=== PATIENT | female | born 1945 | race Caucasian/White ===

== ENCOUNTER 2018-03-09 08:08 | Day surgery (SDC) | payer OTHER ==
[2018-03-09] MEDS ORDERED: Ringers Lactate 1,000 ML IV ONE (08:21)
[2018-03-09] MEDS ORDERED: PROPOFOL 200 MG/20 ML VIAL IV ONE ×2 (10:58)
[2018-03-09] MEDS ORDERED: LIDOCAINE 1% MPF 5 ML VIAL ONE (10:58)
--- NOTE | 2018-03-09 11:02 | ENDO RPT ---
[address], [address] COLONOSCOPY PROCEDURE REPORT EXAM DATE: 03/09/2018 PATIENT NAME: Margaret Shaffer MR #: [id number] BIRTHDATE: 1945 ATTENDING: Adam Padilla DR STATUS: outpatient MACHINE UMBRELLA TIPPER: Sherry Palacios RN, Jennifer Monzon, Robret Monzon, and Gayla Mariano RN INDICATIONS: The patient is a 73 yr old Female here for a colonoscopy due to colon cancer screening and rectal bleeding PROCEDURE PERFORMED: Screening Colonoscopy MEDICATIONS: Per Anesthesia. ESTIMATED BLOOD LOSS: None CONSENT: The patient understands the risks and benefits of the procedure and understands that these risks include, but are not limited to: sedation, allergic reaction, infection, perforation and/or bleeding. Alternative means of evaluation and treatment include, among others: physical exam, x-rays, and/or surgical intervention. The patient elects to proceed with this endoscopic procedure. DESCRIPTION OF PROCEDURE: During intra-op preparation period all mechanical medical equipment was checked for proper function. Hand hygiene and appropriate measures for infection prevention was taken. Procedure, possible complications, alternatives including, but not limited to possibility of bleeding, perforation, tear, infection, sepsis, need for surgery, need for blood transfusion, were explained to the patient. After the risks, benefits and alternatives of the procedure were thoroughly explained, Informed consent was verified, confirmed and timeout was successfully executed by the treatment team. The patient was placed in the left lateral position. A digital rectal exam was performed and revealed internal hemorrhoids. After appropriate level of anesthesia, the scope was passed. The EC-[id number] ([id number]) endoscope was introduced through the anus and advanced to the ascending colon. The quality of the prep was inadequate. The instrument was then slowly withdrawn as the colon was fully examined. Scope withdrawal time was 5 minutes. COLON FINDINGS: Unable to complete due to large stool burden. Retroflexed views revealed no abnormalities. The scope was then completely withdrawn from the patient and the procedure terminated. ADVERSE EVENTS: There were no complications. IMPRESSIONS: Unable to complete due to large stool burden RECOMMENDATIONS: follow-up: office 1 week(s) RECALL: for Colonoscopy. if able to complete prep Adam Padilla DR eSigned: Adam Padilla DR 03/09/2018 11:02 AM cc: CPT CODES: ICD9 CODES: PATIENT NAME: Margaret Shaffer MR#: [id number]
[2018-03-09 11:38] VITALS: BP 106/49; TEMP 97.6; O2SAT 100
== END 2018-03-09 12:06 | disposition home or self-care (01) ==
LOC: OR 08:08
PROVIDERS: ATTEND Surgery
PROC: 0DJD8ZZ Inspection of Lower Intestinal Tract, Via Natural or Artificial Opening Endoscopic (ICD-10-PCS; principal; 2018-03-09 08:30)
DX: K62.5 Hemorrhage of anus and rectum (principal); K64.8 Other hemorrhoids; I10 Essential (primary) hypertension; I25.10 Atherosclerotic heart disease of native coronary artery without angina pectoris; E78.00 Pure hypercholesterolemia, unspecified; D68.9 Coagulation defect, unspecified; E03.9 Hypothyroidism, unspecified; N32.81 Overactive bladder; Z88.2 Allergy status to sulfonamides; Z80.9 Family history of malignant neoplasm, unspecified; Z82.49 Family history of ischemic heart disease and other diseases of the circulatory system
CPT/HCPCS: 45378; J2704 ×2

== ENCOUNTER 2018-05-06 10:41 | Emergency (ER) | payer OTHER ==
--- NOTE | 2018-05-06 12:14 | RAD REPORT ---
EXAM DESCRIPTION: RAD - Wrist Right 3 View - 05/06/2018 11:42 am CLINICAL HISTORY: Fall, hand and wrist pain COMPARISON: None. FINDINGS: No fracture is identified. There is no dislocation or periosteal reaction noted. Slight na rrowing of the radiocarpal joint space seen. Nyvn-pa-zgjnsvic degenerative changes are present at the trapezium first metacarpal articulation with minimal degenerative change at the scaphoid trapezial a rticulation. No foreign body or other soft tissue abnormality. IMPRESSION: Right wrist degenerative change as detailed. No fracture or acute finding.
--- NOTE | 2018-05-06 12:17 | RAD REPORT ---
EXAM DESCRIPTION: RAD - Hand Right 3 View - 05/06/2018 11:42 am CLINICAL HISTORY: Trip and fall, hand pain COMPARISON: None. FINDINGS: No fracture is identified. There is no dislocation or periosteal reaction noted. Patient has advanced degenerative change involving the IP joints. This is most pronounced at the second DIP j oint. Joint space narrowing, sclerosis and spurring changes are present. No erosion. Patient has join t space narrowing at the first, fourth and fifth MCP joints. No spurring or erosive component. Modera te severity degenerative change at the trapezium first metacarpal articulation noted with slight subl uxation of the metacarpal. IMPRESSION: Prominent degenerative changes of the right hand with no fracture or acute bone finding.
--- NOTE | 2018-05-06 12:18 | ER ---
Nurse's Notes [facility] Name: Margaret Shaffer Age: 73 yrs Sex: Female : 1945 Arrival Date: 05/06/2018 Time: 10:43 Bed 11 Private MD: Allen Alcazar Diagnosis: Pain in right hand;Pain in right wrist Presentation: 05/06 10:58 Presenting complaint: Patient states: My knees hurt chronically from having arthritis sg and pain, reports feeling the pain and needing to sit down but was unable to get to the chair, pt states fell to the ground catching herself with her right hand, complains of pain in the right hand and right wrist at this time, denies trauma or injury to head or neck at this time. Transition of care: patient was not received from another setting of care. Onset of symptoms was May 06, 2018. Risk Assessment: Do you want to hurt yourself or someone else? Patient reports no desire to harm self or others. Initial Sepsis Screen: Does the patient meet any 2 criteria? No. Patient's initial sepsis screen is negative. Does the patient have a suspected source of infection? No. Patient's initial sepsis screen is negative. Care prior to arrival: None. 10:58 Method Of Arrival: Ambulatory sg 10:58 Acuity: PHOEBE 4 sg Triage Assessment: 12:00 General: Appears in no apparent distress. Behavior is calm. iw Historical: - Allergies: 11:00 Sulfa (Sulfonamide Antibiotics); sg - PMHx: 11:00 Dementia; Hypertension; sg - PSHx: 11:00 esophagus repair; sg - Immunization history:: Adult Immunizations up to date. - Social history:: Smoking status: Patient/guardian denies using tobacco. - Ebola Screening: : Patient negative for fever greater than or equal to 101.5 degrees Fahrenheit, and additional compatible Ebola Virus Disease symptoms Patient denies exposure to infectious person Patient denies travel to an Ebola-affected area in the 21 days before illness onset No symptoms or risks identified at this time. Screenin:58 Abuse screen: Denies threats or abuse. Denies injuries from another. Tuberculosis sg screening: No symptoms or risk factors identified. Never had TB. 11:50 Nutritional screening: No deficits noted. Fall Risk Fall in past 12 months (25 points). iw Assessment: 11:50 General: Appears in no apparent distress. Behavior is calm, cooperative. Pain: iw Complains of pain in right wrist. Neuro: Level of Consciousness is awake, alert, obeys commands, Oriented to person, place, time, situation, Moves all extremities. Cardiovascular: Patient's skin is warm and dry. Respiratory: Respiratory effort is even, unlabored. Derm: Skin is intact. Musculoskeletal: Range of motion: intact in all extremities. Musculoskeletal: Reports pain in right wrist. Vital Signs: 10:57 Pulse 98; Resp 17 S; Temp 98.3; Pulse Ox 96% on R/A; Pain 6/10; sg 11:00 BP 148 / 98; sg Cynthia Coma Score: 10:57 Eye Response: spontaneous(4). Verbal Response: oriented(5). Motor Response: obeys sg commands(6). Total: 15. Trauma Score (Adult): 10:57 Eye Response: spontaneous(1); Verbal Response: oriented(1); Motor Response: obeys sg commands(2); Systolic BP: > 89 mm Hg(4); Respiratory Rate: 10 to 29 per min(4); Smithwick Score: 15; Trauma Score: 12 ED Course: 10:43 Patient arrived in ED. rg4 10:44 Allen Alcazar DO is Private Physician. rg4 10:47 Stephanie Scruggs FNP-C is [facility]. kb 10:47 Adolph Reyes MD is Attending Physician. kb 11:00 Triage completed. sg 11:00 Arm band placed on. sg 11:41 X-ray completed. Portable x-ray completed in exam room. Patient tolerated procedure ml well. 11:42 XRAY Wrist RIGHT 3 view In Process Unspecified. EDMS 11:42 XRAY Hand RIGHT 3 View In Process Unspecified. EDMS 11:50 Patient has correct armband on for positive identification. iw 12:25 Shruthi Martell, RN is Primary Nurse. iw 12:34 No provider procedures requiring assistance completed. Patient did not have IV access iw during this emergency room visit. Administered Medications: No medications were administered Intake: 10:57 PO: 0ml; Total: 0ml. sg Outcome: 12:18 Discharge ordered by . kb 12:34 Discharged to home ambulatory, with family. iw 12:34 Condition: good 12:34 Discharge instructions given to patient, family, Instructed on discharge instructions, iw follow up and referral plans. Demonstrated understanding of instructions, follow-up care. 12:35 Patient left the ED. iw Signatures: Dispatcher [employer] Stephanie Abdul, DANISHA HENDERSON-Zachary Quiñones RN RN Shruthi Mccarthy RN RN osmany Solitario, Astrid Rivero, Mery rg4 Corrections: (The following items were deleted from the chart) 11:01 10:58 Presenting complaint: Patient states: My knees hurt chronically from having sg arthritis and pain, reports feeling the pain and needing to sit down but was unable to get to the chair, pt states fell to the ground catching herself with her left hand, complains of pain in the left hand and left wrist at this time, denies trauma or injury to head or neck at this time sg
--- NOTE | 2018-05-06 12:18 | EDPHYS ---
Physician Documentation [facility] Name: Margaret Shaffer Age: 73 yrs Sex: Female : 1945 Arrival Date: 05/06/2018 Time: 10:43 Bed 11 Private MD: Allen Alcazar ED Physician Adolph Reyes HPI: 05/06 11:52 This 73 yrs old Female presents to ER via Ambulatory with complaints of Fall kb Injury, Hand Injury. 11:52 Details of fall: The patient fell from an upright position, while walking. Onset: The kb symptoms/episode began/occurred this morning. Associated injuries: The patient sustained right hand and right wrist, painful injury, swelling. Severity of symptoms: At their worst the symptoms were mild, in the emergency department the symptoms are unchanged. The patient has not experienced similar symptoms in the past. The patient has not recently seen a physician. Historical: - Allergies: 11:00 Sulfa (Sulfonamide Antibiotics); sg - PMHx: 11:00 Dementia; Hypertension; sg - PSHx: 11:00 esophagus repair; sg - Immunization history:: Adult Immunizations up to date. - Social history:: Smoking status: Patient/guardian denies using tobacco. - Ebola Screening: : Patient negative for fever greater than or equal to 101.5 degrees Fahrenheit, and additional compatible Ebola Virus Disease symptoms Patient denies exposure to infectious person Patient denies travel to an Ebola-affected area in the 21 days before illness onset No symptoms or risks identified at this time. ROS: 11:51 Constitutional: Negative for fever, chills, and weight loss, Cardiovascular: Negative kb for chest pain, palpitations, and edema, Respiratory: Negative for shortness of breath, cough, wheezing, and pleuritic chest pain, Abdomen/GI: Negative for abdominal pain, nausea, vomiting, diarrhea, and constipation, Skin: Negative for injury, rash, and discoloration, Neuro: Negative for headache, weakness, numbness, tingling, and seizure. 11:51 MS/extremity: Positive for injury or acute deformity, pain, swelling, tenderness, of the right wrist and right hand. Exam: 11:51 Constitutional: This is a well developed, well nourished patient who is awake, alert, kb and in no acute distress. Head/Face: Normocephalic, atraumatic. Chest/axilla: Normal chest wall appearance and motion. Nontender with no deformity. No lesions are appreciated. Cardiovascular: Regular rate and rhythm with a normal S1 and S2. No gallops, murmurs, or rubs. Normal PMI, no JVD. No pulse deficits. Respiratory: Lungs have equal breath sounds bilaterally, clear to auscultation and percussion. No rales, rhonchi or wheezes noted. No increased work of breathing, no retractions or nasal flaring. Abdomen/GI: Soft, non-tender, with normal bowel sounds. No distension or tympany. No guarding or rebound. No evidence of tenderness throughout. Skin: Warm, dry with normal turgor. Normal color with no rashes, no lesions, and no evidence of cellulitis. Neuro: Awake and alert, GCS 15, oriented to person, place, time, and situation. Cranial nerves II-XII grossly intact. Motor strength 5/5 in all extremities. Sensory grossly intact. Cerebellar exam normal. Normal gait. 11:51 Musculoskeletal/extremity: Extremities: grossly normal except: noted in the right hand and right wrist: pain, swelling, tenderness, ROM: limited active range of motion due to pain, in the right hand and right wrist, Circulation is intact in all extremities. Sensation intact. Vital Signs: 10:57 Pulse 98; Resp 17 S; Temp 98.3; Pulse Ox 96% on R/A; Pain 6/10; sg 11:00 BP 148 / 98; sg Cynthia Coma Score: 10:57 Eye Response: spontaneous(4). Verbal Response: oriented(5). Motor Response: obeys sg commands(6). Total: 15. Trauma Score (Adult): 10:57 Eye Response: spontaneous(1); Verbal Response: oriented(1); Motor Response: obeys sg commands(2); Systolic BP: > 89 mm Hg(4); Respiratory Rate: 10 to 29 per min(4); Cynthia Score: 15; Trauma Score: 12 MDM: 11:21 Patient medically screened. kb 11:52 Data reviewed: vital signs, nurses notes. Data interpreted: Pulse oximetry: on room air kb is 96 %. Interpretation: normal. 12:17 Counseling: I had a detailed discussion with the patient and/or guardian regarding: the kb historical points, exam findings, and any diagnostic results supporting the discharge/admit diagnosis, radiology results, the need for outpatient follow up, a family practitioner, to return to the emergency department if symptoms worsen or persist or if there are any questions or concerns that arise at home. 05/06 11:03 Order name: XRAY Wrist RIGHT 3 view; Complete Time: 12:16 05/06 11:03 Order name: XRAY Hand RIGHT 3 View; Complete Time: 12:18 05/06 12:21 Order name: Dave Wrap; Complete Time: 12:35 kb Administered Medications: No medications were administered Disposition: 15:15 Co-signature as Attending Physician, Adolph Reyes MD. rn Disposition: 05/06/18 12:18 Discharged to Home. Impression: Pain in right hand, Pain in right wrist. - Condition is Stable. - Discharge Instructions: Musculoskeletal Pain, Wrist Pain, [id number]. - Medication Reconciliation Form, Thank You Letter, Antibiotic Education, Prescription Opioid Use form. - Follow up: Emergency Department; When: As needed; Reason: Worsening of condition. Follow up: Private Physician; When: 2 - 3 days; Reason: Recheck today's complaints, Continuance of care, Re-evaluation by your physician. Signatures: Dispatcher [employer] EDStephanie Mcghee, S[employer] CEMENT TESTER ASSISTANT-Ckb Zachary Mesa RN RN Shruthi Martell RN RN iw Nieto, Roman, MD MD undergraduate internship: (The following items were deleted from the chart) 12:35 12:18 05/06/2018 12:18 Discharged to Home. Impression: Pain in right hand; Pain in iw right wrist. Condition is Stable. Forms are Medication Reconciliation Form, Thank You Letter, Antibiotic Education, Prescription Opioid Use. Follow up: Emergency Department; When: As needed; Reason: Worsening of condition. Follow up: Private Physician; When: 2 - 3 days; Reason: Recheck today's complaints, Continuance of care, Re-evaluation by your physician. kb
[2018-05-06 13:20] VITALS: TEMP 98.3; O2SAT 96
[2018-05-06 13:21] VITALS: BP 148/98
== END 2018-05-06 12:35 | disposition home or self-care (01) ==
LOC: ER 10:41
DX: M25.531 Pain in right wrist (principal); I10 Essential (primary) hypertension; F03.90 Unspecified dementia, unspecified severity, without behavioral disturbance, psychotic disturbance, mood disturbance, and anxiety; Z88.2 Allergy status to sulfonamides
CPT/HCPCS: 99283

== ENCOUNTER 2018-06-21 19:58 | Inpatient (IN) | payer OTHER ==
[2018-06-21] MEDS ORDERED: ACETAMINOPHEN 500 MG TAB ONE (20:41)
[2018-06-21] MEDS ORDERED: NA CHLORIDE 0.9% 2,000 ML ONE (21:02)
[2018-06-21] MEDS ORDERED: AZITHROMYCIN 500 MG INJ IVPB ONE (21:02)
[2018-06-21] MEDS ORDERED: NA CHLORIDE 0.9% 250 ML ONE (21:02)
[2018-06-21] MEDS ORDERED: CEFTRIAXONE/SWI 1gm 1 GM/10 ML SYR ONE (21:02)
[2018-06-21 21:15] LABS: Absolute Lymphocytes (CBC) 0.8 K/uL (0.7-4.9); Absolute Monocytes 0.4 K/uL (0.1-1.3); Absolute Neutrophil 4.8 K/uL (1.8-8.0); Basophils % 0.2 % (0-1.3); Hematocrit 27.3 % (36.0-45.0); MPV 8.4 fL (7.6-11.3); Monocytes % 5.9 % (3.3-12.3); RBC Red Blood Cell Count 3.17 M/uL (3.86-4.86)
[2018-06-21 21:16] LABS: Protime INR 1.21
--- NOTE | 2018-06-21 21:29 | ER ---
Nurse's Notes [facility] Name: Margaret Shaffer Age: 73 yrs Sex: Female : 1945 Arrival Date: 06/21/2018 Time: 20:10 Bed 8 Private MD: Allen Alcazar Diagnosis: Other sepsis;Fever, unspecified;Pneumonia Presentation: 06/21 20:16 Presenting complaint: EMS states: "Her sister noted her not feeling as well yesterday jd3 and when she kissed her katty this evening she felt the pt was hot to the touch. pt had a temp on our arrival.". Transition of care: patient was not received from another setting of care. Onset of symptoms was June 20, 2018. Risk Assessment: Do you want to hurt yourself or someone else? Patient reports no desire to harm self or others. Initial Sepsis Screen: Does the patient meet any 2 criteria? RR > 20 per min. Temp <36.0*C (96.8*F)) or > 38.3*C (100.9*F). HR > 90 bpm. Yes Does the patient have a suspected source of infection? Yes: Productive cough/pneumonia If YES to both, name of provider notified: Maxwell Romero MD. Care prior to arrival: Glucose check: 84 Oxygen administered. via nasal cannula. 20:16 Method Of Arrival: EMS: [facility] jd3 20:16 Acuity: PHOEBE 2 jd3 Historical: - Allergies: 20:22 Sulfa (Sulfonamide Antibiotics); jd3 - Home Meds: 20:22 Hydrocodone-Acetaminophen Oral [Active]; lisinopril Oral [Active]; Nitroglycerin Oral jd3 [Active]; - PMHx: 20:22 Dementia; Hypertension; Myocardial infarction; UTI; Alzheimers; jd3 - PSHx: 20:22 esophagus repair; Heart stents; jd3 - Immunization history:: Adult Immunizations up to date. - Social history:: Smoking status: Patient/guardian denies using tobacco. - Ebola Screening: : Patient negative for fever greater than or equal to 101.5 degrees Fahrenheit, and additional compatible Ebola Virus Disease symptoms. Screenin:15 Abuse screen: Denies threats or abuse. Denies injuries from another. Nutritional aa1 screening: No deficits noted. Tuberculosis screening: No symptoms or risk factors identified. Fall Risk Mental Status- Overestimates/Forgets Limitations (15 pts.). Assessment: 20:15 General: Appears in no apparent distress. comfortable, Behavior is calm, cooperative, aa1 appropriate for age. Pain: Denies pain. Neuro: Level of Consciousness is awake, alert, obeys commands, Oriented to person, place, time, Moves all extremities. Speech is normal, Facial symmetry appears normal. Cardiovascular: Denies chest pain, shortness of breath, Heart tones S1 S2 present Rhythm is regular. Respiratory: Airway is patent Respiratory effort is even, unlabored, Respiratory pattern is regular, symmetrical, Breath sounds are clear bilaterally. GI: Abdomen is non-distended, Bowel sounds present X 4 quads. Abd is soft and non tender X 4 quads. : No signs and/or symptoms were reported regarding the genitourinary system. EENT: No signs and/or symptoms were reported regarding the EENT system. Derm: Skin is intact, is healthy with good turgor, Skin is pink, warm \\T\\ dry. Musculoskeletal: Circulation, motion, and sensation intact. Capillary refill < 3 seconds, Range of motion: intact in all extremities. 20:23 Reassessment: Unsuccessful attempt at gaining IV access. Pt has poor peripheral access; aa1 charge nurse notified and will attempt u/s IV. 21:05 Reassessment: Patient appears in no apparent distress at this time. Patient and/or aa1 family updated on plan of care and expected duration. Pain level reassessed. Patient is alert, oriented x 3, equal unlabored respirations, skin warm/dry/pink. Labs sent at this time. 22:00 Reassessment: Patient appears in no apparent distress at this time. Patient and/or aa1 family updated on plan of care and expected duration. Pain level reassessed. Patient is alert, oriented x 3, equal unlabored respirations, skin warm/dry/pink. Pt awaiting bed assignment for admission. 23:18 Reassessment: Patient appears in no apparent distress at this time. Patient and/or aa1 family updated on plan of care and expected duration. Pain level reassessed. Patient is alert, oriented x 3, equal unlabored respirations, skin warm/dry/pink. Attempted to call report to 4th floor, was told nurse will call back shortly. 06/22 00:03 Reassessment: Patient appears in no apparent distress at this time. Patient and/or aa1 family updated on plan of care and expected duration. Pain level reassessed. Patient is alert, oriented x 3, equal unlabored respirations, skin warm/dry/pink. Report given to Ketty on 4th floor. Vital Signs: 06/21 20:19 BP 139 / 54; Pulse 146; Resp 25 S; Temp 103.1(O); Pulse Ox 100% on 3 lpm NC; Weight jd3 54.43 kg (R); Height 5 ft. 0 in. (152.40 cm) (R); Pain 0/10; 21:21 BP 91 / 68; Pulse 113; Resp 16; Temp 99.8(O); Pulse Ox 99% on 2 lpm NC; Pain 0/10; aa1 22:12 BP 112 / 68; Pulse 105; Resp 18; Pulse Ox 97% on 2 lpm NC; Pain 0/10; aa1 23:23 BP 111 / 58; Pulse 110; Resp 18; Temp 98.7; Pulse Ox 98% on 2 lpm NC; Pain 0/10; aa1 23:40 BP 112 / 70; Pulse 108; Resp 18; Pulse Ox 99% on 2 lpm NC; aa1 20:19 Body Mass Index 23.44 (54.43 kg, 152.40 cm) jd3 ED Course: 20:10 Patient arrived in ED. ds1 20:11 Allen Alcazar DO is Private Physician. ds1 20:12 Maxwell Romero MD is Attending Physician. ps1 20:15 Patient has correct armband on for positive identification. Placed in gown. Bed in low aa1 position. Call light in reach. Side rails up X2. plant production worker on. Pulse ox on. NIBP on. 20:19 Triage completed. jd3 20:19 Missed attempt(s): 22 gauge in right antecubital area. Bleeding controlled, band aid aa1 applied, catheter tip intact. 20:20 Arm band placed on. jd3 20:23 Eula Vernon, LORE is Primary Nurse. aa1 20:45 Initial lab(s) drawn, by me, sent to lab. First set of blood cultures drawn. Inserted fc 18 gauge 8 cm midline to right upper brachial vein on first attempt. Line with good blood return and flushes well. 20:55 Chest Single View XRAY In Process Unspecified. EDMS 21:02 Second set of blood cultures drawn by ED staff. aa1 21:28 Lissette Arshad MD is Hospitalizing Provider. ps1 21:29 EKG done, by ED staff, reviewed by Maxwell Romero MD. aa1 22:00 Urine collected: straight cath specimen, cloudy, sediment noted. Straight cath aa1 inserted, using sterile technique, 16 Fr. Specimen obtained. Returned cloudy urine. Patient tolerated well. 06/22 00:03 No provider procedures requiring assistance completed. Patient admitted, IV remains in aa1 place. Administered Medications: 06/21 21:03 Drug: NS 0.9% (30 ml/kg) 30 ml/kg Route: IV; Rate: bolus; Site: right upper arm; aa1 22:10 Follow up: IV Status: Completed infusion; IV Intake: 2000ml aa1 21:03 Drug: Rocephin 1 grams Route: IV; Rate: calculated rate; Site: right upper arm; aa1 21:08 Follow up: IV Status: Completed infusion aa1 21:08 Drug: AZITHromycin 500 mg Route: IVPB; Infused Over: 1 hrs; Site: right upper arm; aa1 22:08 Follow up: IV Status: Completed infusion; IV Intake: 250ml aa1 21:35 CANCELLED (Other Intervention Used): Rocephin - (cefTRIAXone) 1 grams IVPB once over 30 aa1 mins; (mix in 50 mL NS) Point of Care Testing: Blood Glucose: 21:03 Blood Glucose: 103 mg/dL; aa1 Ranges: Intake: 22:08 IV: 250ml; Total: 250ml. aa1 22:10 IV: 2000ml; Total: 2250ml. aa1 Outcome: 21:29 Decision to Hospitalize by Provider. ps1 06/22 00:03 Admitted to Med/surg accompanied by tech, via stretcher, room 412, with oxygen, with aa1 chart, Report called to Ketty Condition: stable Instructed on the need for admit, Demonstrated understanding of instructions. 00:21 Patient left the ED. aa1 Signatures: Dispatcher [employer] EDMS Eula Vernon RN RN aa1 Genesis Ferguson RN RN fc Sanford, Demi ds1 Houston Barnes RN RN jd3 Maxwell Romero MD MD ps1
--- NOTE | 2018-06-21 21:29 | EDPHYS ---
Physician Documentation [facility] Name: Margaret Shaffer Age: 73 yrs Sex: Female : 1945 Arrival Date: 06/21/2018 Time: 20:10 Bed 8 Private MD: [facility] ED Physician Maxwell Romero HPI: 06/21 20:15 This 73 yrs old Female presents to ER via Unassigned with complaints of Fever.ps1 20:15 Family member providing history as patient is demented. Patient has had a fever noticed ps1 today but has not acted at her baseline for last 48 hours. Patient has not been eating and has had a cough. She has been on home O2 at 4L daily. She has multiple comorbidities. She had a measured temp TMAX 105.4 at home. Presented altered, tachycardic, and febrile. . Historical: - Allergies: 20:22 Sulfa (Sulfonamide Antibiotics); jd3 - Home Meds: 20:22 Hydrocodone-Acetaminophen Oral [Active]; lisinopril Oral [Active]; Nitroglycerin Oral jd3 [Active]; - PMHx: 20:22 Dementia; Hypertension; Myocardial infarction; UTI; Alzheimers; jd3 - PSHx: 20:22 esophagus repair; Heart stents; jd3 - Immunization history:: Adult Immunizations up to date. - Social history:: Smoking status: Patient/guardian denies using tobacco. - Ebola Screening: : Patient negative for fever greater than or equal to 101.5 degrees Fahrenheit, and additional compatible Ebola Virus Disease symptoms. ROS: 20:15 Unable to obtain ROS due to altered mental status, baseline dementia. ps1 Exam: 20:15 Head/Face: Normocephalic, atraumatic. Eyes: Pupils equal round and reactive to light, ps1 extra-ocular motions intact. Lids and lashes normal. Conjunctiva and sclera are non-icteric and not injected. ENT: Nares patent. No nasal discharge, no septal abnormalities noted. Tympanic membranes are normal and external auditory canals are clear. Oropharynx with no redness, swelling, or masses, exudates, or evidence of obstruction, uvula midline. Mucous membranes moist. 20:15 Abdomen/GI: Soft, non-tender, with normal bowel sounds. No distension or tympany. No guarding or rebound. No evidence of tenderness throughout. Skin: Warm, dry with normal turgor. Normal color with no rashes, no lesions, and no evidence of cellulitis. MS/ Extremity: Pulses equal, no cyanosis. Neurovascular intact. Full, normal range of motion. 20:15 Constitutional: The patient appears alert, obviously ill. 20:15 Cardiovascular: Rate: tachycardic, Rhythm: regular, Pulses: no pulse deficits are appreciated. 20:15 Respiratory: the patient does not display signs of respiratory distress, Respirations: normal, Breath sounds: rhonchi, Respiratory rate: tachypnea 20:15 Neuro: Orientation: disoriented, demented baseline. Vital Signs: 20:19 BP 139 / 54; Pulse 146; Resp 25 S; Temp 103.1(O); Pulse Ox 100% on 3 lpm NC; Weight jd3 54.43 kg (R); Height 5 ft. 0 in. (152.40 cm) (R); Pain 0/10; 21:21 BP 91 / 68; Pulse 113; Resp 16; Temp 99.8(O); Pulse Ox 99% on 2 lpm NC; Pain 0/10; aa1 22:12 BP 112 / 68; Pulse 105; Resp 18; Pulse Ox 97% on 2 lpm NC; Pain 0/10; aa1 23:23 BP 111 / 58; Pulse 110; Resp 18; Temp 98.7; Pulse Ox 98% on 2 lpm NC; Pain 0/10; aa1 23:40 BP 112 / 70; Pulse 108; Resp 18; Pulse Ox 99% on 2 lpm NC; aa1 20:19 Body Mass Index 23.44 (54.43 kg, 152.40 cm) jd3 MDM: 20:14 Patient medically screened. ps1 21:29 Data reviewed: vital signs, nurses notes, and as a result, I will admit patient. ps1 06/21 20:14 Order name: Blood Culture Adult (2) ps1 06/21 20:14 Order name: CBC with Diff; Complete Time: 21:34 ps1 06/21 20:14 Order name: Lactate; Complete Time: 21:34 ps1 06/21 20:14 Order name: Lipase; Complete Time: 21:51 ps1 06/21 20:14 Order name: Procalcitonin; Complete Time: 21:56 ps1 06/21 20:14 Order name: Protime (+inr); Complete Time: 21:34 ps1 06/21 20:14 Order name: Troponin (emerg Dept Use Only); Complete Time: 21:51 ps1 06/21 20:14 Order name: Urine Microscopic Only [facility] 06/21 20:14 Order name: Chest Single View XRAY; Complete Time: 21:56 ps1 06/21 20:14 Order name: CMP; Complete Time: 21:51 ps1 06/21 21:16 Order name: Glucose, Ancillary Testing; Complete Time: 21:26 EDMS 06/21 21:35 Order name: Flu ps1 06/21 22:21 Order name: Urine Dipstick--Ancillary (enter results) ar5 06/21 22:30 Order name: Urine Culture 06/21 20:14 Order name: Accucheck; Complete Time: 21:38 ps1 06/21 20:14 Order name: Cardiac monitoring; Complete Time: 20:41 ps1 06/21 20:14 Order name: EKG - Nurse/Tech; Complete Time: 21:38 ps1 06/21 20:14 Order name: IV Saline Lock - Large Bore; Complete Time: 21:38 ps1 06/21 20:14 Order name: Labs collected and sent; Complete Time: 20:41 ps1 06/21 20:14 Order name: O2 Per Protocol; Complete Time: 20:41 ps1 06/21 20:14 Order name: O2 Sat Monitoring; Complete Time: 20:41 ps1 06/21 20:14 Order name: Urine Dipstick-Ancillary (obtain specimen); Complete Time: 22:11 ps1 06/21 20:14 Order name: Straight Cath - Urine; Complete Time: 22:08 ps1 EC:33 Rate is 112 beats/min. Rhythm is regular. QRS [place] is Normal. AL interval is normal. ps1 QRS interval is normal. QT interval is normal. No Q waves. T waves are Normal. No ST changes noted. Clinical impression: Sinus tachycardia. Interpreted by me. Administered Medications: 21:03 Drug: NS 0.9% (30 ml/kg) 30 ml/kg Route: IV; Rate: bolus; Site: right upper arm; aa1 22:10 Follow up: IV Status: Completed infusion; IV Intake: 2000ml aa1 21:03 Drug: Rocephin 1 grams Route: IV; Rate: calculated rate; Site: right upper arm; aa1 21:08 Follow up: IV Status: Completed infusion aa1 21:08 Drug: AZITHromycin 500 mg Route: IVPB; Infused Over: 1 hrs; Site: right upper arm; aa1 22:08 Follow up: IV Status: Completed infusion; IV Intake: 250ml aa1 21:35 CANCELLED (Other Intervention Used): Rocephin - (cefTRIAXone) 1 grams IVPB once over 30 aa1 mins; (mix in 50 mL NS) Point of Care Testing: Blood Glucose: 21:03 Blood Glucose: 103 mg/dL; aa1 Ranges: Critical Glucose Levels:Adult <50 mg/dl or >400 mg/dl <40 mg/dl or >180 mg/dl Disposition: :29 Chart complete. ps1 Disposition: 06/21/18 21:29 Hospitalization ordered by Lissette Arshad for Inpatient Admission. Preliminary diagnosis are Other sepsis, Fever, unspecified, Pneumonia. - Bed requested for Telemetry/MedSurg (Inpatient). - Status is Inpatient Admission. aa1 - Condition is Fair. - Problem is new. - Symptoms have improved. UTI on Admission? Yes Signatures: Dispatcher [employer] EDMD Eula Vernon RN RN aa1 Houston Barnes RN RN jMaxwell Vásquez MD MD ps1 Stephanie Lovett ar5 Corrections: (The following items were deleted from the chart) 21:35 20:14 Rocephin - (cefTRIAXone) 1 grams IVPB once over 30 mins; (mix in 50 mL NS) aa1 ordered. ps1 21:35 21:35 Rocephin - (cefTRIAXone) 1 grams IVPB once over 30 mins; (mix in 50 mL NS) aa1 ordered. aa1 21:57 21:29 Hospitalization Ordered by Lissette Arshad MD for Inpatient Admission. Preliminary ps1 diagnosis is Other sepsis; Fever, unspecified. Bed requested for Telemetry/MedSurg (Inpatient). Status is Inpatient Admission. Condition is Fair. Problem is new. Symptoms have improved. UTI on Admission? Yes. ps1 22:52 21:57 06/21/2018 21:29 Hospitalization Ordered by Lissette Arshad MD for Inpatient ar5 Admission. Preliminary diagnosis is Other sepsis; Fever, unspecified; Pneumonia. Bed requested for Telemetry/MedSurg (Inpatient). Status is Inpatient Admission. Condition is Fair. Problem is new. Symptoms have improved. UTI on Admission? Yes. ps1 06/22 00:21 06/21 22:52 06/21/2018 21:29 Hospitalization Ordered by Lissette Arshad MD for Inpatient aa1 Admission. Preliminary diagnosis is Other sepsis; Fever, unspecified; Pneumonia. Bed requested for Telemetry/MedSurg (Inpatient). Status is Inpatient Admission. Condition is Fair. Problem is new. Symptoms have improved. UTI on Admission? Yes. ar5
[2018-06-21 21:37] LABS: Albumin 3.3 g/dL (3.4-5.0); Bilirubin Total 0.5 mg/dL (0.2-1.0); Potassium 4.3 mmol/L (3.5-5.1); Protein, Total 7.5 g/dL (6.4-8.2); Troponin (Emerg Dept Use Only) 0.03 ng/mL (0.0-0.045)
--- NOTE | 2018-06-21 21:53 | RAD REPORT ---
EXAM DESCRIPTION: RAD - Chest Single View - 06/21/2018 8:55 pm CLINICAL HISTORY: COUGH Chest pain. COMPARISON: Chest Pa And Lat (2 Views) dated 03/15/2017; Chest Single View dated 07/17/2016; Chest Singl e View dated 06/17/2016; Chest Single View dated 06/18/2015 FINDINGS: Portable technique limits examination quality. Rounded airspace opacity is present in the left mid lung peripherally, most compatible with pneumonia . The lungs are otherwise clear of acute infiltrate. The heart is normal in size. No displaced fractu res.Atherosclerosis. IMPRESSION: Peripheral left mid lung pneumonia. Consider followup films until complete clearance.
[2018-06-21 22:31] LABS: Urine Culture Reflex Order NOT NEEDED
[2018-06-21 22:32] LABS: Urine Bacteria 20-50 /HPF (<20); Urine RBC <5 /HPF (NONE SEEN)
[2018-06-21 22:33] LABS: Urine Blood 2+ (NEG); Urine Glucose NEGATIVE (NEG); Urine Protein 2+ (NEG)
--- NOTE | 2018-06-21 22:54 | P.HP ---
Certification for Inpatient Patient admitted to: Inpatient With expected LOS: >2 Midnights Practitioner: I am a practitioner with admitting privileges, knowledge of patient current condition, hospital course, and medical plan of care. Services: Services provided to patient in accordance with Admission requirements found in Title 42 Section 412.3 of the Code of Federal Regulations Patient History Date of Service: 06/21/18 Reason for admission: sepsis History of Present Illness: Ms Shaffer is a 73 years old woman with history of CVA, HTN, CAD, dementia, who according to her sister, she was not doing well today. The patient was more lethargic, and was felt hot to touch. Due to her dementia, the patient is not very reliable, but she states that has been coughing later. At arrival the patient was febrile 103.1 F, tachycardic 143 bpm. Lab work remarkable for normal WBC count, normal lacate and procalcitonin. UA abnormal, consistent with UTI. CXR also abnormal, shows left midlung pneumonia. Allergies Sulfa (Sulfonamide Antibiotics) Allergy (Verified 07/17/16 23:49) Itching/Hives/Rash Home Medications: Aspirin [Aspirin EC 81 MG] 81 mg PO BID 06/19/15 Docusate [Colace Cap*] 100 mg PO BEDTIME 06/19/15 Gabapentin [Neurontin*] 300 mg PO DAILY 06/19/15 Levothyroxine [Synthroid*] 0.075 mg PO DAILY 06/19/15 Lisinopril [Zestril] 2.5 mg PO DAILY 06/19/15 Metoprolol Succinate [Toprol Xl*] 50 mg PO DAILY 06/19/15 Nitroglycerin 0.4 mg SL DIRECTED 06/19/15 Verapamil HCl [Verapamil ER] 120 mg PO DAILY 06/19/15 risperiDONE [Risperdal 0.25 MG TAB*] 0.25 mg PO BID 06/19/15 Hydrocodone 10/APAP 325 [[place] 10/325*] 1 tab PO DAILY #40 tab 06/20/15 Simvastatin [Zocor*] 10 mg PO DAILY 06/17/16 Solifenacin Succinate [Vesicare] 1 tab PO DAILY 06/17/16 Ciprofloxacin HCl [Cipro 500 MG Tablet] 500 mg PO BID #10 tab 07/19/16 - Past Medical/Surgical History Diabetic: No -: HTN -: ARTHRITIS -: DEMENTIA -: CAD -: CVA -: Carotid artery disease -: Hypothyroidism -: Falls -: ESOPHAUS REPAIR -: HYSTERCTOMY -: CARTOID STENT -: LEFT CATARACT SX - Family History Mother -: Heart disease, Hypertension Notes: [place], Father -: Cancer, Other (see notes) Notes: [place] - Social History Smoking Status: Former smoker Alcohol use: No CD- Drugs: No Caffeine use: Yes Place of Residence: Home Review of Systems 10-point ROS is otherwise unremarkable Physical Examination - Physical Exam General: Alert, In no apparent distress, Demented, Confused HEENT: Atraumatic, PERRLA, Mucous membr. moist/pink, EOMI, Sclerae nonicteric Neck: Supple, 2+ carotid pulse no bruit, No LAD, Without JVD or thyroid abnormality Respiratory: Normal air movement, Crackles/rales (left base crackles) Cardiovascular: Regular rate/rhythm, Normal S1 S2 Gastrointestinal: Normal bowel sounds, No tenderness Musculoskeletal: No tenderness Integumentary: No rashes Neurological: Normal speech, Normal strength at 5/5 x4 extr, Normal tone, Normal affect, Dementia Lymphatics: No axilla or inguinal lymphadenopathy - Studies Laboratory Data (last 24 hrs) 06/21/18 20:45: PT 14.2 H, INR 1.21 06/21/18 20:45: Sodium 133 L, Potassium 4.3, BUN 20 H, Creatinine 1.21, Glucose 93, Total Bilirubin 0.5, AST 30, ALT 21, Alkaline Phosphatase 57, Lipase 71 L 06/21/18 20:45: WBC 6.0, Hgb 9.3 L, Hct 27.3 L, Plt Count 167 Assessment and Plan - Problems (Diagnosis) (1) Pneumonia Onset Date: 06/19/15 Current Visit: No Status: Acute Qualifiers: Pneumonia type: due to unspecified organism Laterality: left Lung location: lower lobe of lung Qualified Code(s): J18.1 - Lobar pneumonia, unspecified organism (2) Sepsis Current Visit: No Status: Acute Qualifiers: Sepsis type: sepsis due to unspecified organism Qualified Code(s): A41.9 - Sepsis, unspecified organism (3) UTI (urinary tract infection) Onset Date: 06/19/15 Current Visit: No Status: Acute Qualifiers: Urinary tract infection type: acute cystitis Hematuria presence: without hematuria Qualified Code(s): N30.00 - Acute cystitis without hematuria (4) CAD (coronary artery disease) Onset Date: 06/18/16 Current Visit: No Status: Chronic Qualifiers: Coronary Disease-Associated Artery/Lesion type: resighini artery [place] vs. transplanted heart: resighini heart Associated angina: without angina Qualified Code(s): I25.10 - Atherosclerotic heart disease of resighini coronary artery without angina pectoris (5) Dementia Onset Date: 06/18/16 Current Visit: No Status: Chronic Qualifiers: Dementia type: Alzheimer's disease Alzheimer's disease onset: unspecified onset Dementia behavioral disturbance: without behavioral disturbance Qualified Code(s): G30.9 - Alzheimer's disease, unspecified; F02.80 - Dementia in other diseases classified elsewhere without behavioral disturbance (6) History of CVA (cerebrovascular accident) Current Visit: No Status: Chronic - Plan The patient will be admitted to the hospital due to sepsis secondary to pneumonia and UTI. Will cotinue treatment with IV Rocephin and Azithromycin. Blood and urine culture in process. Also IV fluids, and breathing treatment as needed. - Advance Directives Does patient have a Living Will: No Does patient have a Durable POA for Healthcare: No - Code Status/Comfort Care Code Status Assessed: Yes Code Status: Full Code
[2018-06-22 00:41] VITALS: BMI 23.4
[2018-06-22] MEDS ORDERED: IPRATROPIUM BROM 0.5MG/2.5ML NEB PRN (00:42)
[2018-06-22] MEDS ORDERED: ALBUTEROL 2.5 MG/3 ML NEB SOL NEB PRN (00:42)
[2018-06-22] MEDS ORDERED: ONDANSETRON 4 MG/2 ML VIAL IV PRN (00:42)
[2018-06-22] MEDS: NA CHLORIDE 0.9% 1,000 ML IV SCH ×2 (00:57→08:25)
[2018-06-22] MEDS: ACETAMINOPHEN 500 MG TAB PO PRN ×2 (01:26→13:55)
[2018-06-22 04:13] LABS: Absolute Lymphocytes (CBC) 1.8 K/uL (0.7-4.9); Absolute Monocytes 0.4 K/uL (0.1-1.3); Absolute Neutrophil 3.2 K/uL (1.8-8.0); Basophils % 0.3 % (0-1.3); Eosinophils % 0.2 % (0-4.4); Hematocrit 26.1 % (36.0-45.0); Lymphocytes % 33.4 % (15.3-44.8); MPV 8.4 fL (7.6-11.3); Monocytes % 6.8 % (3.3-12.3); RBC Red Blood Cell Count 3.02 M/uL (3.86-4.86)
[2018-06-22 04:32] LABS: Potassium 4.1 mmol/L (3.5-5.1)
[2018-06-22 06:07] LABS: Magnesium 2.1 mg/dL (1.8-2.4)
--- NOTE | 2018-06-22 10:53 | EKG ---
Test Date: 2018-06-21 Test Time: 21:28:[address] Man: HADLEY MEASUREMENT RESULTS: Intervals: Rate: 112 CO: 160 QRSD: 110 QT: 352 QTc: 480 [place]: P: 56 CO: 160 QRS: -25 T: 68 INTERPRETIVE STATEMENTS: Sinus tachycardia Low voltage QRS Cannot rule out Anteroseptal infarct, age undetermined Abnormal ECG Compared to ECG 07/17/2016 19:58:08 Low QRS voltage now present Sinus rhythm no longer present Prolonged QT interval no longer present Myocardial infarct finding still present Electronically Signed On 06-22-18 10:52:14 CDT by Killian Robert
--- NOTE | 2018-06-22 13:35 | P.PN ---
Subjective Date of Service: 06/22/18 Chief Complaint: sepsis Subjective: Improving Physical Examination - Vital Signs Temperature: 100.1 F Blood Pressure: 139/61 Pulse: 117 Respirations: 20 Pulse Ox (%): 98 - Physical Exam General: Alert, In no apparent distress, Oriented x3, Demented HEENT: Atraumatic Neck: Supple Respiratory: Clear to auscultation bilaterally, Normal air movement Cardiovascular: Normal pulses, Regular rate/rhythm Gastrointestinal: Normal bowel sounds, Soft and benign, Non-distended, No masses , No rebound, No guarding Neurological: Dementia - Studies Laboratory Data (last 24 hrs) 06/21/18 20:45: PT 14.2 H, INR 1.21 06/21/18 20:45: Sodium 133 L, Potassium 4.3, BUN 20 H, Creatinine 1.21, Glucose 93, Total Bilirubin 0.5, AST 30, ALT 21, Alkaline Phosphatase 57, Lipase 71 L 06/21/18 20:45: WBC 6.0, Hgb 9.3 L, Hct 27.3 L, Plt Count 167 Microbiology Data (last 24 hrs): 06/21/18 22:26 Nasopharnyx Influenza Type A Antigen Screen - Final 06/21/18 22:26 Nasopharnyx Influenza Type B Antigen Screen - Final Medications List Reviewed: Yes Assessment & Plan Discharge Plan: Home Plan to discharge in: 48 Hours Physician Review Additional Text: Impression: Left lobe lower lobe pneumonia along with UTI Hypertension CAD Hypothyroidism Dementia Chronic iron deficiency anemia Plan: Left lobe lower lobe pneumonia along with UTI: Continue antibiotic therapy. Recheck chest x-ray tomorrow. Maintain sats above 90%. Wean off oxygen. Await culture results. Likely discharge within the next 24-48 hr. Patient will return to home with hospice. Case discussed with her family. Agree with current plan of care. Hypertension: Obtain and restart home medication. CAD: Will obtain and restart home medication. Hypothyroidism: Will obtain and restart home medication. Dementia: Will need to verify and restart home medication. Patient return to hospice at discharge. Chronic iron deficiency/B12 anemia: Will start iron and B12. Time Spent Managing Pts Care (In Minutes): 55
[2018-06-22] MEDS: METOPROLOL XL 25 MG TAB PO SCH ×2 (13:55→21:18)
[2018-06-22] MEDS ORDERED: NA CHLORIDE 0.9% 1,000 ML IV SCH (14:00)
[2018-06-22] MEDS: HYDROCODONE/APAP 5/325 MG TAB PO PRN ×2 (16:18→21:24)
[2018-06-22] MEDS ORDERED: ENOXAPARIN 30 MG/0.3 ML SQ SCH (17:00)
[2018-06-22] MEDS ORDERED: CEFTRIAXONE 1 GM/NS 50 ML 1 GM/50 ML BAG IV SCH (21:00)
[2018-06-22] MEDS ORDERED: AZITHROMYCIN IV 500 MG in NA CHLORIDE 0.9% 250 ML IVPB SCH (21:00)
[2018-06-22] MEDS: FERROUS SULFATE 325 MG TAB PO SCH (21:18)
[2018-06-23 07:21] LABS: Absolute Lymphocytes (CBC) 1.1 K/uL (0.7-4.9); Absolute Monocytes 0.3 K/uL (0.1-1.3); Absolute Neutrophil 4.1 K/uL (1.8-8.0); Basophils % 0.2 % (0-1.3); Eosinophils % 0.3 % (0-4.4); Hematocrit 27.5 % (36.0-45.0); Lymphocytes % 19.9 % (15.3-44.8); MPV 8.2 fL (7.6-11.3); Monocytes % 5.5 % (3.3-12.3); RBC Red Blood Cell Count 3.23 M/uL (3.86-4.86)
[2018-06-23 07:35] LABS: Magnesium 1.8 mg/dL (1.8-2.4); Potassium 3.6 mmol/L (3.5-5.1)
[2018-06-23] MEDS ORDERED: MAGNESIUM SULFATE 1 gm IVPB 1 GM/100 ML BAG IV ONE (07:49)
[2018-06-23] MEDS ORDERED: POTASSIUM CL SA 10 MEQ TAB PO ONE (07:50)
--- NOTE | 2018-06-23 08:41 | RAD REPORT ---
EXAM DESCRIPTION: Rogelio Pa And Lat (2 Views)06/23/2018 6:42 am CLINICAL HISTORY: Cough COMPARISON: June 21 FINDINGS: Mild improvement in the left upper lobe infiltrate. Extensive bilateral pulmonary opacities are unchanged consistent with pulmonary fibrosis. The heart is normal size IMPRESSION: Mild improvement in the left upper lobe pneumonia
[2018-06-23] MEDS ORDERED: CYANOCOBALAMIN 1,000 MCG TAB PO SCH (09:00)
[2018-06-23] MEDS: ACETAMINOPHEN 500 MG TAB PO PRN (09:03)
[2018-06-23] MEDS: FERROUS SULFATE 325 MG TAB PO SCH (09:04)
[2018-06-23] MEDS: METOPROLOL XL 25 MG TAB PO SCH (09:04)
[2018-06-23 10:06] VITALS: O2SAT 95
--- NOTE | 2018-06-23 13:11 | P.DS ---
Admission Date: 06/21/18 Discharge Date: 06/23/18 Primary Care Provider: Dr. Allen Alcazar Disposition: HOSPICE-HOME Discharge Condition: GOOD Reason for Admission: sepsis Consultations: none Procedures: CXR: COMPARISON: June 21 FINDINGS: Mild improvement in the left upper lobe infiltrate. Extensive bilateral pulmonary opacities are unchanged consistent with pulmonary fibrosis. The heart is normal size IMPRESSION: Mild improvement in the left upper lobe pneumonia Medical Problem List: Left lobe lower lobe pneumonia along with UTI Hypertension CAD/Chronic Diastolic CHF Hypothyroidism Alzheimer's dementia Chronic iron and B12 deficiency anemia Urinary incontinence Chronic pain Brief History of Present Illness: 73-year-old female presented to the emergency room with increased fatigue, fever. Patient found to have left lower lobe pneumonia with UTI. Patient was admitted for treatment. Patient with history of CHF, CAD, hypertension, hypothyroidism, Alzheimer's dementia and currently on hospice. Hospital Course: Patient presented with fatigue and fever secondary to left lower lobe pneumonia with UTI. Patient responded well to IV fluids and antibiotic therapy. Chest x- ray showed improvement. Patient was able to be weaned off oxygen. At discharge urine culture was pending. Patient was doing well and wanted to go home. This was discussed in detail with family and patient. In consideration of the patient returning back to hospice and her desire to go home the patient was released. Patient will need a call back to the hospital tomorrow to follow up on urine culture. Prior urine culture reviewed. At discharge patient will return home with hospice. At discharge she will continue with Augmentin 500 mg 1 pill twice daily for 7 days. UTI prevention education will be provided. Patient will be given information on pneumonia. Recommend to recheck chest x- ray in 2-4 weeks to monitor resolution. Patient with history of CHF and hypertension. Occasions were adjusted during his stay patient did well with metoprolol XL 50 mg daily. At discharge she will continue with aspirin 81 mg daily, lisinopril 2.5 mg daily, and metoprolol XL 50 mg daily. Please note at discharge verapamil was discontinued as blood pressure was well controlled. Recommend to monitor blood pressures daily. Further adjustment in medication can be done by her PCP. Patient with hyperlipidemia. Patient will continue with her medication Zocor 10 mg daily. Patient with history of urinary incontinence. Patient taking Ditropan and VESIcare. Will discontinue Ditropan at discharge. Patient may continue with VESIcare 10 mg daily. Recommend to follow up with urology as an outpatient to further address. UTI prevention as recommended above. Continue with above recommendation addressing UTI. Patient with Alzheimer's dementia. Patient will continue with her medication Namenda ER once daily. Patient also takes risperidone 0.25 mg 1 pill twice daily and trazodone 100 mg at bedtime as needed. Patient will continue with hospice at home. Patient with iron and B12 deficiency. Previous lab reviewed. At discharge, patient may continue with vitamin-B 12 daily and iron 325 mg 1 pill twice daily. Recommend to recheck CBC in 1-2 months. Patient with hypothyroidism. At discharge she will continue with levothyroxine 75 mcg daily. Patient with chronic pain. Patient may continue with Neurontin 100 mg 1 pill twice daily and Belton 1 pill 3 times a day as needed for pain. Vital Signs/Physical Exam: Temp Pulse Resp BP Pulse Ox 97.4 F 89 20 128/56 L 96 06/23/18 08:00 06/23/18 09:04 06/23/18 08:00 06/23/18 09:04 06/23/18 08:00 General: Alert, In no apparent distress, Cooperative, Demented (Minimal) HEENT: Atraumatic Neck: Supple Respiratory: Clear to auscultation bilaterally, Normal air movement Cardiovascular: Normal pulses, Regular rate/rhythm Gastrointestinal: Normal bowel sounds, Soft and benign, Non-distended Integumentary: No tenderness/swelling, No erythema, No warmth, No cyanosis Neurological: Normal speech, Normal strength at 5/5 x4 extr, Normal tone Laboratory Data at Discharge: WBC 5.5 K/uL (4.3-10.9) 06/23/18 07:00 Hgb 9.5 g/dL (12.0-15.0) L 06/23/18 07:00 Hct 27.5 % (36.0-45.0) L 06/23/18 07:00 Plt Count 156 K/uL (152-406) 06/23/18 07:00 PT 14.2 SECONDS (9.5-12.5) H 06/21/18 20:45 INR 1.21 06/21/18 20:45 Sodium 140 mmol/L (136-145) 06/23/18 07:00 Potassium 3.6 mmol/L (3.5-5.1) 06/23/18 07:00 BUN 9 mg/dL (7-18) 06/23/18 07:00 Creatinine 0.74 mg/dL (0.55-1.3) 06/23/18 07:00 Glucose 78 mg/dL (74-106) 06/23/18 07:00 Magnesium 1.8 mg/dL (1.8-2.4) 06/23/18 07:00 Total Bilirubin 0.5 mg/dL (0.2-1.0) 06/21/18 20:45 AST 30 U/L (15-37) 06/21/18 20:45 ALT 21 U/L (12-78) 06/21/18 20:45 Alkaline Phosphatase 57 U/L (45-117) 06/21/18 20:45 Lipase 71 U/L (73-393) L 06/21/18 20:45 Home Medications: Aspirin [Aspirin EC 81 MG] 81 mg PO BID 06/19/15 Docusate [Colace Cap*] 100 mg PO BEDTIME 06/19/15 Gabapentin [Neurontin*] 100 mg PO BID 06/19/15 Levothyroxine [Synthroid*] 0.075 mg PO DAILY 06/19/15 Lisinopril [Zestril] 2.5 mg PO DAILY 06/19/15 Metoprolol Succinate [Toprol Xl*] 50 mg PO DAILY 06/19/15 Nitroglycerin 0.4 mg SL DIRECTED 06/19/15 risperiDONE [Risperdal 0.25 MG TAB*] 0.25 mg PO BID 06/19/15 Simvastatin [Zocor*] 10 mg PO DAILY 06/17/16 Solifenacin Succinate [Vesicare] 1 tab PO DAILY 06/17/16 Bisacodyl [Dulcolax*] 5 mg PO DAILY 06/22/18 Hydrocodone 10/APAP 325 [Belton 10/325*] 0.5 tab PO Q4HR PRN 06/22/18 Trazodone [Desyrel*] 100 mg PO BEDTIME 06/22/18 Amox/Clavulanate [Augmentin 500-125 mg Tab] 500 mg PO BID #14 tab 06/23/18 Cyanocobalamin [Vitamin B-12*] 1,000 mcg PO DAILY #90 tab 06/23/18 Ferrous Sulfate [Ferrous Sulfate*] 325 mg PO BID #60 tab 06/23/18 Memantine HCl [Memantine HCl ER] 7 mg PO DAILY 06/23/18 New Medications: Amox/Clavulanate [Augmentin 500-125 mg Tab] 500 mg PO BID #14 tab Cyanocobalamin [Vitamin B-12*] 1,000 mcg PO DAILY #90 tab Ferrous Sulfate [Ferrous Sulfate*] 325 mg PO BID #60 tab Patient Discharge Instructions: 1. Patient will return home to hospice. Recommend follow up with her PCP in 1 week to follow up hospitalization. 2. Patient found to have a UTI and left lower lobe pneumonia. Patient has responded well to treatment. Urine culture pending at discharge. This can be followed up by her PCP. At discharge she will continue with Augmentin 500 mg 1 pill twice daily for 7 days. Recommend to recheck chest x-ray in 2-4 weeks to monitor resolution. 3. Patient with history of CHF and hypertension. Medications have been adjusted at discharge. At discharge she will continue with aspirin 81 mg daily, lisinopril 2.5 mg daily, metoprolol XL 50 mg daily. Please note at discharge verapamil was discontinued as blood pressure was well controlled. Recommend to monitor blood pressures daily. Further adjustment in medication can be done by her PCP. 4. Patient with hyperlipidemia. Patient will continue with her medication Zocor 10 mg daily. 5. Patient with history of urinary incontinence. Patient may continue with VESIcare 10 mg daily. Recommend to follow up with urology as an outpatient to further address. UTI prevention as recommended above. Follow up on urine culture. Patient will be sent home on Augmentin 500 mg twice daily for 7 days for her infection. 6. Patient with Alzheimer's dementia. Patient will continue with her medication Namenda ER once daily. Patient also takes risperidone 0.25 mg 1 pill twice daily and trazodone 100 mg at bedtime as needed. Patient will continue with hospice at home. 7. Patient with iron and B12 deficiency. Patient may continue with vitamin-B 12 daily and iron 325 mg 1 pill twice daily. Recommend to recheck CBC in 1-2 months. 8. Patient with hypothyroidism. At discharge she will continue with levothyroxine 75 mcg daily. 9. Patient with chronic pain. Patient may continue with Neurontin 100 mg 1 pill twice daily and Belton 1 pill 3 times a day as needed for pain. Diet: AHA Activity: Fall precautions Time spent managing pt's care (in minutes): 55
[2018-06-23 13:20] VITALS: BP 134/58; TEMP 98.4
== END 2018-06-23 13:59 | disposition hospice, home (50) | DRG 871 ==
LOC: ER 19:58 → ERHOLD 23:17 → 4TH 23:42
PROVIDERS: ADMIT Internal Medicine; ATTEND Family Medicine
DX: A41.9 Sepsis, unspecified organism (principal); J18.1 Lobar pneumonia, unspecified organism; N30.00 Acute cystitis without hematuria; I50.32 Chronic diastolic (congestive) heart failure; I25.10 Atherosclerotic heart disease of native coronary artery without angina pectoris; G30.9 Alzheimer's disease, unspecified; F02.80 Dementia in other diseases classified elsewhere, unspecified severity, without behavioral disturbance, psychotic disturbance, mood disturbance, and anxiety; Z51.5 Encounter for palliative care; I11.0 Hypertensive heart disease with heart failure; E03.9 Hypothyroidism, unspecified; D51.9 Vitamin B12 deficiency anemia, unspecified; D50.9 Iron deficiency anemia, unspecified; R32 Unspecified urinary incontinence; G89.29 Other chronic pain; Z79.82 Long term (current) use of aspirin; Z86.73 Personal history of transient ischemic attack (TIA), and cerebral infarction without residual deficits; Z87.891 Personal history of nicotine dependence; Z88.2 Allergy status to sulfonamides
CPT/HCPCS: 36415; 51702; 71045; 71046; 80048; 80053; 81003; 81015; 82962; 83605; 83690; 83735; 84145; 84484; 85025; 85610; 87040; 87077; 87086; 87088; 87186; 87804; 93005; 96365; 96367; 96375; 99285; J0456; J0696; J1650; J2405; J3475; J7030